=== PATIENT | female | born 2000 | race Two or more races ===

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

== ENCOUNTER 2022-01-18 18:06 | Emergency (ER) | payer OTHER ==
[2022-01-18 18:22] VITALS: BP 101/71; PULSE 60; TEMP 98.4; BMI 16.6
[2022-01-18 19:20] LABS: HEMATOCRIT 37.4 % (32.4-45.2); HEMOGLOBIN 12.9 G/dL (10.7-15.3); MCH 30.4 pg (25.7-33.7); MCHC 34.4 g/dl (32.0-36.0); MEAN CELL VOLUME 88.5 fl (80-96); MEAN PLT VOLUME 8.3 fl (7.5-11.1); PLATELET COUNT 276.1 10^3/uL (134-434); RBC 4.23 10^6/uL (3.60-5.2); RDW 14.8 % (11.6-15.6); WHITE BLOOD COUNT 7.9 10^3/uL (4.0-10.8)
[2022-01-18 19:28] LABS: ALBUMIN 4.3 g/dl (3.4-5.0); BILIRUBIN,TOTAL 0.7 mg/dl (0.2-1); CALCIUM 9.8 mg/dl (8.5-10); CREATININE 0.5 mg/dl (0.55-1.3); TOT PROT 7.4 g/dl (6.4-8.2)
[2022-01-18 19:34] LABS: EPITHELIAL CELLS FEW /hpf
[2022-01-18 19:49] LABS: ANISOCYTOSIS 1+; PLATELET ESTIMATE ADEQUATE
== END 2022-01-18 20:00 | disposition home or self-care (01) ==
LOC: FER 18:06
DX: N30.00 Acute cystitis without hematuria (principal)
CPT/HCPCS: 36415; 80053; 81003; 81015; 84703; 85027; 87086; 87186; 99283-25

== ENCOUNTER 2022-01-29 22:50 | Emergency (ER) | payer OTHER ==
[2022-01-29 22:56] VITALS: BP 105/63; PULSE 54; TEMP 97.9; BMI 16.6
== END 2022-01-30 00:08 | disposition home or self-care (01) ==
LOC: FER 22:50
DX: N39.0 Urinary tract infection, site not specified (principal); R31.9 Hematuria, unspecified
CPT/HCPCS: 81003; 81015; 81025; 87077; 87086; 99283-25

== ENCOUNTER 2022-02-22 15:28 | Emergency (ER) | payer OTHER ==
[2022-02-22 16:10] VITALS: BP 101/65; PULSE 89; TEMP 97.8; BMI 16.6
[2022-02-22 16:31] LABS: HCG,QUALITATIVE URINE Negative
== END 2022-02-22 17:17 | disposition home or self-care (01) ==
LOC: FER 15:28
DX: R30.0 Dysuria (principal)
CPT/HCPCS: 81003; 84703; 87086; 99284-25

== ENCOUNTER 2022-04-27 01:18 | Emergency (ER) | payer OTHER ==
[2022-04-27 01:26] VITALS: BP 112/75; PULSE 73; RESP 18; TEMP 98; BMI 16.9
== END 2022-04-27 02:17 | disposition home or self-care (01) ==
LOC: FER 01:18
DX: R09.1 Pleurisy (principal)
CPT/HCPCS: 71045-TC-FY; 81025; 93005; 93010; 99285-25

== ENCOUNTER 2022-06-27 18:19 | Emergency (ER) | payer OTHER ==
[2022-06-27 18:38] VITALS: BP 111/73; PULSE 91; RESP 18; TEMP 98.6; BMI 16.8
== END 2022-06-27 19:50 | disposition home or self-care (01) ==
LOC: FER 18:19
DX: S01.111A Laceration without foreign body of right eyelid and periocular area, initial encounter (principal); S70.311A Abrasion, right thigh, initial encounter; W22.8XXA Striking against or struck by other objects, initial encounter
CPT/HCPCS: 99281-25

== ENCOUNTER 2022-07-25 14:21 | Emergency (ER) | payer OTHER ==
[2022-07-25 14:48] LABS: HEMATOCRIT 36.5 % (32.4-45.2); HEMOGLOBIN 12.7 G/dL (10.7-15.3); MCH 30.8 pg (25.7-33.7); MCHC 34.8 g/dl (32.0-36.0); MEAN CELL VOLUME 88.6 fl (80-96); MEAN PLT VOLUME 8.1 fl (7.5-11.1); PLATELET COUNT 306.1 10^3/uL (134-434); RBC 4.12 10^6/uL (3.60-5.2); WHITE BLOOD COUNT 10.4 10^3/uL (4.0-10.8)
[2022-07-25 14:49] VITALS: BP 114/78; PULSE 81; RESP 18; TEMP 98.7; BMI 17.3
[2022-07-25 14:58] LABS: ALK PHOS 45 U/L (45-117); ANION GAP 5 MMOL/L (8-16); BILIRUBIN,TOTAL 0.5 mg/dl (0.2-1); CALCIUM 9.1 mg/dl (8.5-10); CHLORIDE 103 mmol/L (98-107); CO2 25 mmol/L (21-32); CREATININE 0.6 mg/dl (0.55-1.3); GLUCOSE,RANDOM 70 mg/dl (74-106); SGOT/AST 20 U/L (15-37); SGPT/ALT 12 U/L (13-61); SODIUM 133 mmol/L (136-145); TOT PROT 7.4 g/dl (6.4-8.2)
[2022-07-25 15:23] LABS: PLATELET ESTIMATE ADEQUATE
== END 2022-07-25 15:57 | disposition home or self-care (01) ==
LOC: FER 14:21
DX: R07.89 Other chest pain (principal)
CPT/HCPCS: 0241U-QW; 36415; 71046-TC-FY; 80053; 84484; 85027; 93005; 99285-25

== ENCOUNTER 2022-08-11 14:59 | Emergency (ER) | payer OTHER ==
[2022-08-11 15:07] VITALS: BP 117/76; TEMP 98.8; BMI 17.5
[2022-08-11] MEDS ORDERED: metroNIDAZOLE 500 MG TABLET PO ONE (15:16)
[2022-08-11 15:37] LABS: EPITHELIAL CELLS RARE /hpf
[2022-08-11 16:10] VITALS: PULSE 83; RESP 16
== END 2022-08-11 16:14 | disposition home or self-care (01) ==
LOC: FER 14:59
DX: N89.8 Other specified noninflammatory disorders of vagina (principal)
CPT/HCPCS: 36415; 81003; 81015; 84703; 87086; 87491; 87591; 87661; 99283-25

== ENCOUNTER 2022-11-15 18:26 | Emergency (ER) | payer OTHER ==
[2022-11-15 18:51] VITALS: BP 115/75; PULSE 90; RESP 20; TEMP 98.6; BMI 17.6
[2022-11-15] MEDS ORDERED: SODIUM CHLORIDE 1,000 ML IV ONE (19:30)
[2022-11-15 20:02] LABS: HEMOGLOBIN 12.4 G/dL (10.7-15.3); MCH 30.8 pg (25.7-33.7); MCHC 35.3 g/dl (32.0-36.0); MEAN CELL VOLUME 87.3 fl (80-96); MEAN PLT VOLUME 8.1 fl (7.5-11.1); PLATELET COUNT 278.6 10^3/uL (134-434); RBC 4.01 10^6/uL (3.60-5.2); RDW 13.3 % (11.6-15.6); WHITE BLOOD COUNT 9.1 10^3/uL (4.0-10.8)
[2022-11-15 20:17] LABS: BILIRUBIN,TOTAL 0.4 mg/dl (0.2-1); CALCIUM 9.6 mg/dl (8.5-10); CREATININE 0.6 mg/dl (0.55-1.3); TOT PROT 7.5 g/dl (6.4-8.2)
== END 2022-11-15 20:51 | disposition home or self-care (01) ==
LOC: FER 18:26
PROC: 3E0337Z Introduction of Electrolytic and Water Balance Substance into Peripheral Vein, Percutaneous Approach (ICD-10-PCS; principal; 2022-11-15)
DX: R11.0 Nausea (principal)
CPT/HCPCS: 36415; 80053; 81025; 85027; 99284-25

== ENCOUNTER 2023-05-24 18:31 | Emergency (ER) | payer OTHER ==
[2023-05-24 18:53] VITALS: BP 118/77; PULSE 86; RESP 20; TEMP 99.4; BMI 18.8
[2023-05-24] MEDS ORDERED: ACETAMINOPHEN 500 MG TABLET (FP) PO ONE (18:54)
[2023-05-24] MEDS ORDERED: ACETAMINOPHEN 500 MG TABLET (FP) ONE (19:08)
== END 2023-05-24 19:37 | disposition home or self-care (01) ==
LOC: FER 18:31
DX: R50.9 Fever, unspecified (principal); M79.10 Myalgia, unspecified site; R07.89 Other chest pain; R05.9 Cough, unspecified; B34.9 Viral infection, unspecified; Z20.822 Contact with and (suspected) exposure to COVID-19
CPT/HCPCS: 0241U-QW; 99283-25

== ENCOUNTER 2023-07-13 20:27 | Emergency (ER) | payer OTHER ==
[2023-07-13 20:37] VITALS: BP 117/79; PULSE 84; RESP 19; TEMP 98.2; BMI 19.2
[2023-07-13 20:51] LABS: HCG,QUALITATIVE URINE Negative
[2023-07-13] MEDS ORDERED: PHENAZOPYRIDINE HCL 100 MG TABLET (FP) PO ONE (21:04)
[2023-07-13] MEDS ORDERED: NITROFURANTOIN MONOHYD/M-CRYST 100 MG CAPSULE PO STA (21:04)
[2023-07-13 21:05] LABS: EPITHELIAL CELLS FEW /hpf
[2023-07-13] MEDS ORDERED: SULFAMETHOXAZOLE/TRIMETHOPRIM 800MG/160MG D.S. TABLET PO ONE (21:11)
[2023-07-13] MEDS ORDERED: SULFAMETHOXAZOLE/TRIMETHOPRIM 800MG/160MG D.S. TABLET ONE (21:14)
== END 2023-07-13 21:26 | disposition home or self-care (01) ==
LOC: FER 20:27
DX: R35.0 Frequency of micturition (principal); R30.0 Dysuria; R31.9 Hematuria, unspecified; N39.0 Urinary tract infection, site not specified
CPT/HCPCS: 81003; 81015; 84703; 87086; 87186; 99283-25

== ENCOUNTER 2023-09-22 18:01 | Emergency (ER) | payer OTHER ==
[2023-09-22 18:20] VITALS: BP 108/75; PULSE 84; RESP 15; TEMP 99.3; BMI 18.8
[2023-09-22] MEDS ORDERED: LIDOCAINE 1%/EPI 1:100000 (20 ML MULTI DOSE VIAL) IJ ONE (18:22)
[2023-09-22] MEDS ORDERED: LIDO 2%/EPI 1:200000 PRESRVFRE (20 ML SDVIAL) ONE (18:23)
== END 2023-09-22 18:56 | disposition home or self-care (01) ==
LOC: FER 18:01
PROC: 0H98XZZ Drainage of Buttock Skin, External Approach (ICD-10-PCS; principal; 2023-09-22)
DX: L02.31 Cutaneous abscess of buttock (principal)
CPT/HCPCS: 99283-25